=== PATIENT | male | born 1955 | race Caucasian/White ===

== ENCOUNTER → 2021-12-18 | Outpatient (CLI) | payer MEDICARE | END | disposition home or self-care (01) | LOC: RAH 13:44 | PROVIDERS: ATTEND Internal Medicine | DX: I11.9 Hypertensive heart disease without heart failure (principal); I08.8 Other rheumatic multiple valve diseases; I20.9 Angina pectoris, unspecified; I31.3 Pericardial effusion (noninflammatory) | CPT/HCPCS: 93306 ==

== ENCOUNTER 2022-08-19 05:50 | Day surgery (SDC) | payer MEDICARE ==
[2022-08-16 17:05] LABS: BASOPHILS % (AUTO) 0.5 % (0.0-5.0); EOSINOPHILS % (AUTO) 3.6 % (0.0-8.0); HEMATOCRIT 46.4 % (42-54); MEAN CORPUSCULAR HEMOGLOBIN 29.8 pg (27.0-33.0); MEAN CORPUSCULAR HGB CONC 34.1 g/dL (32.0-36.0); MEAN CORPUSCULAR VOLUME 87.4 fL (79-99); NEUTROPHILS % (AUTO) 64.7 % (40.0-77.0); PLATELET COUNT (AUTO) 262 K/uL (130-400); RED BLOOD CELL COUNT(AUTO) 5.31 MIL/uL (4.50-6.20); RED CELL DISTRIBUTION WIDTH 12.1 % (11.0-15.5); WHITE BLOOD COUNT (AUTO) 12.1 K/uL (4.8-10.8)
[2022-08-16 17:15] LABS: INR 0.94 (0.85-1.15); PROTHROMBIN TIME 10.3 SEC (9.6-11.6)
[2022-08-16 17:16] LABS: PARTIAL THROMBOPLASTIN TIME 32.4 SEC (26.3-35.5)
[2022-08-16 17:36] LABS: ALBUMIN 4.3 g/dL (3.5-5.0); BILIRUBIN,DIRECT 0.1 mg/dL (0.0-0.3); POTASSIUM 4.2 mmol/L (3.5-5.1); TOTAL PROTEIN, SERUM 7.3 g/dL (6.0-8.3)
[2022-08-18 09:04] VITALS: BP 155/89
[~2022-08-19] VITALS: Ht 175.3 cm; Wt 105.5 kg
[2022-08-19] VITALS (10 sets, daily range): BP systolic 93–154; BP diastolic 40–74
[~2022-08-19 05:50] MED LIST: AMLO-142 PO; ATOR40TA69 PO; GLIM2TAB30 PO; HYDR-4153 PO; HYDR25TA PO; METF-444 PO
[2022-08-19] MEDS ORDERED: 0.9%NACL 1000ML 1,000 ML IV ONE (06:39)
[2022-08-19] MEDS ORDERED: LIDOCAINE 2%-EPI 1:200,000 20 ML VIAL IJ ONE (07:24)
[2022-08-19] MEDS ORDERED: LIDOCAINE 1%-EPI 1:100,000 20 ML VIAL IJ ONE ×2 (07:25→08:25)
[2022-08-19] MEDS ORDERED: MINERAL OIL 30 ML UDCUP ONE (07:25)
[2022-08-19] MEDS ORDERED: MIDAZOLAM HCL 1 MG/ML 2ML VIAL ONE (08:12)
[2022-08-19] MEDS ORDERED: PROPOFOL 10 MG/ML 20ML VIAL IV ONE (08:13)
[2022-08-19] MEDS ORDERED: LIDOCAINE PF 100MG/5ML (2%) SYRINGE 5ML ONE ×2 (08:13→09:06)
[2022-08-19] MEDS ORDERED: FENTANYL CITRATE PF 50 MCG/1 ML 2ML VIAL ONE ×2 (08:13→09:03)
[2022-08-19] MEDS ORDERED: ROCURONIUM 10MG/1ML SYR 10 MG/ML ML ONE (08:13)
[2022-08-19] MEDS ORDERED: SUCCINYLCHOLINE 200MG/10ML SYR ONE (08:13)
[2022-08-19] MEDS ORDERED: EPHEDRINE SULFATE 50 MG/ML AMPULE ONE (08:38)
[2022-08-19] MEDS ORDERED: GLYCOPYRROLATE 1 MG/5 ML SYRINGE ONE (08:55)
[2022-08-19] MEDS ORDERED: NEOSTIGMINE 5MG/5ML SYR IV ONE (08:56)
[2022-08-19] MEDS ORDERED: BACITRACIN 28.4 GM OINT TP ONE (08:59)
== END 2022-08-19 10:47 | disposition home or self-care (01) ==
LOC: DAH 05:50
PROVIDERS: ATTEND Otolaryngology Plastic Surgery within the Head & Neck
DX: C44.02 Squamous cell carcinoma of skin of lip (principal); I10 Essential (primary) hypertension; E11.9 Type 2 diabetes mellitus without complications; E66.9 Obesity, unspecified; Z20.822 Contact with and (suspected) exposure to COVID-19; Z79.899 Other long term (current) drug therapy; Z87.891 Personal history of nicotine dependence; Z72.89 Other problems related to lifestyle; Z68.34 Body mass index [BMI] 34.0-34.9, adult
CPT/HCPCS: 80076; 80048; 85025; 85610; 85730; 87426; 36415; 93005; 40530; 82948 ×2; A6260; J7030 ×2; A4606; J3010 ×2; J3490 ×5; J0330; J2710; J2001 ×2; J2250; J2704; A4649